=== PATIENT | female | born 1980 ===

== ENCOUNTER 2024-05-17 10:22 | Inpatient (IN) | payer BC ==
[~2024-05-17] VITALS: Ht 161.3 cm; Wt 105.5 kg
[2024-05-17] VITALS (36 sets, daily range): BP systolic 94–160; BP diastolic 59–97; PULSE 58–80; TEMP 98.3
--- NOTE | 2024-05-17 12:30 | NUR ---
1230PT AMBULATORY TO UNIT WITH SPOUSE FOR ELECTIVE PRIMARY FOR PRE-ECLAMPSIA. 1240THIS RN AT BEDSIDE TO PLACE TOCO AND EFM. EFM TRACING CAT I. PT BLOOD PRESSURE 140s/80s. PT REPORTS POSITIVE MOVEMENT. PT DENIES ANY LEAKING OF FLUID AND DENIES VAGINAL BLEEDING. PT REPORTS FEELING THE OCCASIONAL TIGHTENING OF HER BELLY. 1300IV STARTED AT THIS TIME PER ADITI RN. LABS UNABLE TO BE DRAWN. LAB NOTIFIED. FIRST BAG OF LR STARTED AT THIS TIME.
[2024-05-17] MEDS ORDERED: GLUCOPHAGE500 MG/TAB PO (12:51)
[2024-05-17] MEDS ORDERED: PRENATAL TABLET PO (12:52)
--- NOTE | 2024-05-17 13:30 | NUR ---
DR. FIERRO STATES LETS PLAN ON 1700 FOR C/S. DR FIERRO STATES THIS IS DUE TO DOCTOR'S SCHEDULE, HIGH ACUITY OF LABOR PTS, AND WAITING FOR LAB RESULTS ON PT. PT VERBALIZES UNDERSTANDING OF POC.
[2024-05-17 13:51] LABS: BASO % 0.5 % (0.0-2.0); EOS % 0.5 % (0.0-4.0); GRAN # 4.8 K/mm3 (1.4-6.5); GRAN % 74.4 % (42.2-75.2); HEMOGLOBIN 10.8 g/dl (12.5-16.0); LYMPH # 1.1 K/mm3 (1.2-3.4); LYMPH % 17.9 % (20.0-51.0); MEAN CELL VOLUME 92 fl (80.0-100.0); MEAN CORPUSCULAR HEMOGLOBIN 32 pg (27-31); MEAN CORPUSCULAR HGB CONC 35 g/dl (33.0-37.0); MEAN PLATELET VOLUME 9.8 fl (7.4-10.4); MONO # 0.4 K/mm3 (0.1-0.6); MONO % 6.1 % (1.7-9.3); PLATELET COUNT 209 K/mm3 (130-400); RED BLOOD COUNT 3.35 M/mm3 (4.10-5.30); REDCELL DISTRIBUTION WIDTH-CV 13.5 % (11.5-14.5)
[2024-05-17 13:55] LABS: HEMATOCRIT 30.8 % (37.0-47.0)
[2024-05-17 14:04] LABS: ALBUMIN 2.8 g/dL (3.5-5.0); BILIRUBIN,TOTAL 0.2 mg/dL (0.2-1.2); CALCIUM 9.2 mg/dL (8.4-10.2); CREATININE, serum 0.71 mg/dL (0.57-1.11); POTASSIUM 3.7 mEq/L (3.5-4.5); TOTAL PROTEIN 5.8 g/dl (6.2-8.1)
[2024-05-17] MEDS ORDERED: Meperidine 50 MG/ML 1 ML VIAL IV PRN (14:15)
[2024-05-17] MEDS ORDERED: LR 1,000 ML IV SCH ×2 (14:15→14:30)
[2024-05-17] MEDS ORDERED: Morphine 2 MG/1 ML VIAL [PACU/SDC ONLY] IV PRN (14:15)
[2024-05-17] MEDS ORDERED: Ondansetron 4 MG/2 ML VIAL IV PRN ×2 (14:15→21:15)
[2024-05-17] MEDS ORDERED: diphenhydrAMINE 50 MG/ML 1 ML VIAL IV PRN (14:15)
[2024-05-17] MEDS ORDERED: droPERidol 2.5 MG/ML 2 ML VIAL IV PRN (14:15)
[2024-05-17] MEDS ORDERED: PRIL40 PO (18:59)
[2024-05-17] MEDS ORDERED: Acetaminophen 500 MG TAB PO SCH (21:15)
[2024-05-17] MEDS ORDERED: oxyCODONE 5 MG TAB PO PRN (21:15)
[2024-05-17] MEDS ORDERED: Magnes Hydrox (MOM) 80 MG/ML 30 ML CUP PO PRN (21:15)
[2024-05-17] MEDS ORDERED: Measles/Mumps/Rubella Virus Vaccine Live w Diluent 0.5 ML VIAL SQ SCH (21:15)
[2024-05-17] MEDS ORDERED: LR 1,000 ML IV PRN (21:15)
[2024-05-17] MEDS ORDERED: Loratadine 10 MG TAB PO PRN (21:15)
[2024-05-17] MEDS ORDERED: Naloxone 0.4 MG/ML VIAL IV PRN (21:15)
[2024-05-18] VITALS (10 sets, daily range): BP systolic 125–156; BP diastolic 66–84; PULSE 58–100; TEMP 98.1–98.9
[2024-05-18] MEDS ORDERED: Ibuprofen 800 MG TAB PO SCH (03:12)
--- NOTE | 2024-05-18 05:20 | NUR ---
0520-PT AMBULATED TO AND [facility]IM[facility]UTIST[facility]. PERICARE DONE BY RN AND NEW GOWN, PANTIES, AND PAD ON AT THIS TIME. PT UP TO SINK AND BRUSHED TEETH AND WASHED FACE. PLAN OF CARE DISCUSSED. 0540-ASSISTED BACK TO BED WITH MINIMAL ASSIST. PT DENIES NEEDS.
[2024-05-18] MEDS ORDERED: metFORMIN 500 MG TAB PO SCH (08:00)
[2024-05-18] MEDS ORDERED: Sennosides/Docusate 8.6-50 MG TAB PO SCH (08:00)
[2024-05-18] MEDS ORDERED: Prenatal Vitamins/Iron/FA TAB PO SCH (09:00)
--- NOTE | 2024-05-18 10:40 | NUR ---
Initial visit; Patient indisposed, welcomed Instructor [employer] who offered congratulations and Blessings for the of their son. Instructor [employer] thanked family for choosing [facility] and his response was that everything is going well and he thanked Instructor [employer] for visit.
[2024-05-18] MEDS ORDERED: NIFEdipine XL 30 MG TAB PO SCH (13:41)
[2024-05-19 08:00] VITALS: BP 153/81; PULSE 97; TEMP 98.2
[2024-05-19 09:57] VITALS: BP 147/91
[2024-05-19] MEDS ORDERED: NIFEdipine XL 30 MG TAB PO ONE (10:15)
[2024-05-19 10:45] VITALS: BP 130/79; PULSE 90
[2024-05-19 16:00] VITALS: BP 136/74; PULSE 84; TEMP 98.7
[2024-05-19 20:30] VITALS: BP 145/79; PULSE 88; TEMP 97.9
[2024-05-20 07:23] VITALS: BP 152/90; PULSE 79
[2024-05-20] MEDS ORDERED: NIFEdipine XL 60 MG TAB PO SCH (09:00)
[2024-05-20] MEDS ORDERED: PROCARDIA XL 6060 MG PO (09:32)
[2024-05-20] MEDS ORDERED: MOTRIN 800800 MG/TAB PO (09:33)
== END 2024-05-20 11:50 | disposition home or self-care (01) | DRG 788 ==
LOC: OB 10:22
PROVIDERS: ADMIT Obstetrics & Gynecology
PROC: 10D00Z1 Extraction of Products of Conception, Low, Open Approach (ICD-10-PCS; principal; 2024-05-17)
DX: O14.94 Unspecified pre-eclampsia, complicating childbirth (principal); O14.95 Unspecified pre-eclampsia, complicating the puerperium; Z37.0 Single live birth; O99.02 Anemia complicating childbirth; D64.9 Anemia, unspecified; Z3A.37 37 weeks gestation of pregnancy
CPT/HCPCS: J7120